=== PATIENT | male | born 1965 | race Two or more races ===

== ENCOUNTER 2020-06-04 15:53 | Emergency (ER) | payer OTHER ==
[~2020-06-04] VITALS: Ht 170.2 cm; Wt 80.7 kg
--- NOTE | 2020-06-04 16:08 | NUR ---
came in for throat discomfort, painful to swallow s/p eating fish last night. to ER bed 9, hooked to monitor, warm blanket provided. patient aao X 4. breathing even and unlabored. awaiting md dow
--- NOTE | 2020-06-04 17:50 | NUR ---
strep throat done and sent to lab
--- NOTE | 2020-06-04 18:46 | NUR ---
PATIENT IN BED AWAKE, HOOKED TO MONITOR, WILL CONTINUE TO MONITOR ACCORDINGLY
--- NOTE | 2020-06-04 19:11 | NUR ---
REPORT GIVEN TO CECI MORA FOR DI
--- NOTE | 2020-06-04 19:34 | NUR ---
TOOK OVER PT CARE. PT AAOX4. IN BED, RR EVEN AND UNLABORED. VSS. NO ACUTE DISTRESS NOTED. PT STATED WHEN HE SWALLOWS, HE FEELS A DONYA "THING" ON THE LEFT SIDE OF HIS NECK. OTHERWISE, VSS.
--- NOTE | 2020-06-04 21:12 | NUR ---
Patient discharged to home in stable condition. Written and verbal after care instructions given. Patient verbalizes understanding of instruction. Pt ambulated out of E.D. vss.
[2020-06-04 21:13] VITALS: BP 129/72
== END 2020-06-04 21:13 | disposition home or self-care (01) ==
LOC: ER 15:58
DX: T17.228A Food in pharynx causing other injury, initial encounter (principal); J02.9 Acute pharyngitis, unspecified; E11.65 Type 2 diabetes mellitus with hyperglycemia; I10 Essential (primary) hypertension; W45.8XXA Other foreign body or object entering through skin, initial encounter; Y93.89 Activity, other specified; Y92.89 Other specified places as the place of occurrence of the external cause; Y99.8 Other external cause status
CPT/HCPCS: 70360-TC; 70490-TC; 82962-TC; 86403-TC; 87070-TC